=== PATIENT | male | born 1945 | race Caucasian/White ===

== ENCOUNTER 2016-08-30 13:44 | Emergency (ER) | payer MEDICARE, OTHER, BC ==
[2016-08-30] MEDS ORDERED: HYDROmorphone 1 MG/ML Syringe IVPUSH ONE ×3 (13:50→15:12)
[2016-08-30] MEDS: HYDROmorphone 1 MG/ML Syringe IVPUSH ONE ×2 (13:52→14:03)
[2016-08-30] MEDS ORDERED: Ondansetron 4 MG/2 ML SDV IVPUSH ONE ×3 (13:53→15:12)
[2016-08-30] MEDS ORDERED: HYDROmorphone 1 MG/ML Syringe ONE ×2 (13:57→15:04)
[2016-08-30] MEDS ORDERED: Sodium Chloride 0.9% 1,000 ML ONE ×2 (14:04→14:14)
[2016-08-30] MEDS ORDERED: Sodium Chloride 0.9% 1,000 ML IV ONE ×3 (14:10→14:20)
[2016-08-30] MEDS ORDERED: Lidocaine 2% 100 MG/5 ML Syringe ONE (14:27)
[2016-08-30] MEDS ORDERED: Lidocaine 2% 20 ML MDV ONE (14:28)
[2016-08-30] MEDS ORDERED: Morphine 10 MG/ML Syringe IVPUSH ONE (15:00)
[2016-08-30] MEDS ORDERED: Ondansetron 4 MG/2 ML SDV ONE (15:04)
[2016-08-30] MEDS ORDERED: Morphine 10 MG/ML Syringe ONE (15:24)
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
[2016-08-30 18:35] VITALS: BP 95/58
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
== END 2016-08-30 16:24 | disposition expired ==
LOC: CC.ED 13:44
DX: S21.032A Puncture wound without foreign body of left breast, initial encounter (principal); I10 Essential (primary) hypertension; C78.6 Secondary malignant neoplasm of retroperitoneum and peritoneum; C80.1 Malignant (primary) neoplasm, unspecified; Z87.891 Personal history of nicotine dependence; Z91.09 Other allergy status, other than to drugs and biological substances; W34.00XA Accidental discharge from unspecified firearms or gun, initial encounter; Y92.009 Unspecified place in unspecified non-institutional (private) residence as the place of occurrence of the external cause
CPT/HCPCS: 12001; 31500; 36415; 36592; 51702; 71010; 71250; 74176; 80053; 81001; 82150; 85025; 86850; 86900; 86901; 96360; 96361; 96374; 96375; 96376; 99285; 99291; G0390; J1170; J2270; J2405; J7030